=== PATIENT | female | born 1970 | race Caucasian/White ===

== ENCOUNTER 2023-10-07 17:12 | Emergency (ER) | payer SELFPAY ==
--- NOTE | ~2023-10-07 | XR_ITS ---
EXAMINATION: XR chest 2V Exam Date/Time: 10/07/2023 17:26 CDT HISTORY: chest pain Comparison: None. RESULT: Lines, tubes, and devices: None. Lungs and pleura: Clear. Cardiomediastinal silhouette: Unremarkable. Other: No acute osseous or upper abdominal finding. IMPRESSION: No acute cardiopulmonary process. Reviewed, dictated and finalized at location K.
--- NOTE | 2023-10-07 17:13 | ECG_ITS ---
Test Date: 2023-10-07 17:19:50 Measurements Intervals [place] Rate: 107 P: 162 GA: 159 QRS: 186 QRSD: 100 T: 184 QT: 319 QTc: 426 Interpretive Statements SINUS TACHYCARDIA ARM LEADS REVERSED BASELINE ARTIFACT- I, II, III, AVR, AVL, AVF, V1, V5-V6 ABNORMAL ECG No previous ECG available for comparison Electronically Signed On 10-08-2023 06:15:16 CDT by Feng Florian D.O.
[2023-10-07 17:18] VITALS: BP 183/92; PULSE 105; RESP 18; TEMP 36.8; O2SAT 98
--- NOTE | 2023-10-07 17:27 | ED.CHESTPAIN ---
HPI - Chest Pain General Chief Complaint: Chest Pain Stated Complaint: cp, toothache Time Seen by Provider: 10/07/23 17:25 Source: patient Mode of arrival: ambulatory Limitations: no limitations History of Present Illness HPI narrative: This is a 52 year old female that presents to the ER for toothache. Reports poor dentition. She does not have insurance and is unable to see a dentist. Reports worsening pain in a right upper tooth. When she gets bad pain in her tooth she develops sharp left sided chest pain. Reports family history of heart problems which prompted her to be seen. Denies any current pain. Denies fever, cough or shortness of breath. Related Data Allergies Allergy/AdvReac Type Severity Reaction Status Date / Time codeine Allergy Unknown Verified 06/04/22 15:30 Review of Systems Review of Systems: CONSTITUTIONAL: Denies fever ENT: Reports dentition CARDIOVASCULAR: Reports chest pain. Denies palpitations, or edema. RESPIRATORY: Denies cough or dyspnea. All systems reviewed & are unremarkable except as noted in HPI and below PMFSH Past Medical History Medical History (Updated 10/07/23 @ 18:47 by Alma Gomez PA-C) No active medical problems Social History Social History (Updated 10/07/23 @ 17:48 by Alma Gomez PA-C) Smoking status: Current every day smoker Exam Narrative: GENERAL: Well-appearing, well-nourished, and in no acute distress. HEAD: Normocephalic, atraumatic. EYES: EOMI. ENT: Nares clear, no rhinorrhea or epistaxis. Mucous membranes moist. Oropharynx without tonsillar hypertrophy exudate or other lesions. Poor dentition. Tooth #6 is fractured and decaying. No surrounding erythema or fluctuance to suggest abscess NECK: Supple. No adenopathy or masses. No JVD CHEST: Clear to auscultation. No respiratory distress. No wheezes rales or rhonchi HEART: Regular rate and rhythm. No murmur heard. Normal peripheral pulses. EXTREMITIES: Normal range of motion. No edema. SKIN: Warm, dry, no rash. NEURO: No focal deficits. Alert and oriented x3. PSYCH: Normal mood and affect Course Course Emergency Course: Patient updated on workup and agrees with plan of care Vital Signs Vital signs: Vital Signs Temperature 98.2 F 10/07/23 17:18 Pulse Rate 105 H 10/07/23 17:18 Respiratory Rate 18 10/07/23 17:18 Blood Pressure 183/92 H 10/07/23 17:18 Pulse Oximetry 98 10/07/23 17:18 Oxygen Delivery Room Air 10/07/23 17:18 Temperature 98.2 F 10/07/23 17:18 Pulse Rate 90 10/07/23 18:58 Respiratory Rate 18 10/07/23 18:58 Blood Pressure 158/90 H 10/07/23 18:58 Pulse Oximetry 96 10/07/23 18:58 Oxygen Delivery Room Air 10/07/23 17:18 MDM - Chest Pain MDM Narrative Medical decision making narrative: Patient presents to the emergency department for chest pain. Reports she has been having sharp, left-sided chest pain associated with her tooth aches. She is afebrile and nontoxic appearing. No evidence for abscess on exam. Will be started on oral antibiotics and was instructed she should follow up with a dentist. Her blood pressure was elevated upon arrival, this down trended without intervention. Most recent blood pressure 158/90. She was also instructed she needs to have some follow-up with a primary provider for this. CBC and metabolic panel without concerning findings. EKG without acute ST changes in her baseline troponin is negative. Chest x-ray without acute cardiopulmonary abnormality. Her heart score is 3. Patient was updated on her workup and agrees with plan of care. She was given warnings to return to the ER Differential Diagnosis Differential diagnosis: Likely stable angina, atypical chest pain, costochondritis and other ( anxiety, toothache, dental abscess) Lab Data Attestation: I reviewed the patient's lab results. 10/07/23 18:07 10/07/23 18:07 Labs: Lab Results 10/07/23 Range/Units 18:07 WBC 5
[2023-10-07 17:41] VITALS: PULSE 100
[2023-10-07] MEDS: ASPIRIN 81 MG CHEWABLE TABLET 324 MG PO (17:56)
[2023-10-07 18:01] VITALS: BP 186/116; PULSE 91; RESP 18; O2SAT 98
[2023-10-07 18:18] LABS: Basophils Percent Auto 0.5 % (0.2-1.2); Eosinophils Absolute Auto 0.1 K/mm3 (0-0.3); Hematocrit 42.9 % (37.0-47.0); Hemoglobin 14.6 g/dL (12.0-15.0); Immature Granulocyte Absolute 0.02 K/mm3 (0.00-0.031); Immature Granulocyte Percent A 0.3 % (0-0.5); Lymphocytes Percent Auto 35.7 % (18.3-44.2); Mean Corpuscular Hemoglobin 28.3 pg (26-34); Mean Corpuscular Volume 83.3 fl (80-100); Mean Platelet Volume 10.5 fl (7.4-10.4); Monocytes Absolute Auto 0.3 K/mm3 (0.1-0.6); Monocytes Percent Auto 4.4 % (2.6-8.5); Neutrophils Absolute Auto 3.4 K/mm3 (1.3-6.7); Neutrophils Percent Auto 58.1 % (45.5-73.1); Platelet Count Result 174 k/mm3 (150-375); Red Blood Count 5.15 M/mm3 (4.2-5.4); Red Cell Distribution Width 12.5 % (11.5-14.5); White Blood Count 5.9 K/mm3 (4.5-10.0)
[2023-10-07 18:27] LABS: Alanine Aminotransferase 21 U/L (6-35); Albumin Level 4.6 g/dL (3.5-5.1); Alkaline Phosphatase 90 U/L (38-126); Anion Gap 8 mmol/L (4-12); Aspartate Amino Transferase 23 U/L (14-36); Bilirubin,Total 0.7 mg/dL (0.2-1.3); Blood Urea Nitrogen 15 mg/dL (7-17); Calcium 9.3 mg/dL (8.4-10.2); Carbon Dioxide 25 mmol/L (22-30); Chloride 104 mmol/L (98-107); Estimated CRCL calculation 98 ml/min; Estimated Glomerular Filt Rate > 60; Glucose 83 mg/dL (65-110); Lipase 38 U/L (23-300); Potassium 3.8 mmol/L (3.4-5.0); Sodium 137 mmol/L (137-145)
[2023-10-07 18:38] LABS: Partial Thromboplastin Time 30.9 Seconds (22.3-36.8)
[2023-10-07 18:39] LABS: Troponin I < 0.012 ng/mL (0.000-0.034)
[2023-10-07 18:58] VITALS: BP 158/90; PULSE 90; RESP 18; O2SAT 96
== END 2023-10-07 18:58 | disposition home or self-care (01) ==
PROVIDERS: Emergency Medicine; Emergency Provider Physician Assistant
DX: K08.89 Other specified disorders of teeth and supporting structures (principal); R07.9 Chest pain, unspecified; R03.0 Elevated blood-pressure reading, without diagnosis of hypertension; F17.200 Nicotine dependence, unspecified, uncomplicated; R00.0 Tachycardia, unspecified
CPT/HCPCS: 36415; 71046; 80053; 83690; 84484; 85025; 85610; 85730; 93005; 99284; A9270

== ENCOUNTER 2024-12-24 05:10 | Emergency (ER) | payer SELFPAY ==
--- NOTE | ~2024-12-24 | XR_ITS ---
EXAMINATION: XR foot RT min 3V DATE: 12/24/2024 05:50 INDICATION: Atraumatic heel pain TECHNIQUE: Dorsoplantar, two oblique and lateral views of the right foot were obtained. COMPARISON: None. FINDINGS: Alignment is normal. No fracture. Joint spaces are normal. Small plantar calcaneal spur. No cortical erosions or periosteal reaction. Soft tissues are unremarkable. IMPRESSION: 1. Small plantar calcaneal spur. Otherwise unremarkable right foot radiographs. Reviewed, dictated and finalized at location A.
[2024-12-24 05:18] VITALS: PULSE 91; RESP 18; TEMP 36.6; O2SAT 97
--- NOTE | 2024-12-24 05:57 | ED_ITS ---
HPI - Extremity Problem General Chief complaint: Extremity Problem,Nontraumatic Stated complaint: R foot pain Time Seen by Provider: 12/24/24 05:20 History of Present Illness HPI Narrative: Patient presenting with atraumatic right foot pain, started this morning, worse with bearing weight on the heel, has had this happen in the past but it got better Related Data Allergies Allergy/AdvReac Type Severity Reaction Status Date / Time codeine Allergy Unknown Verified 06/04/22 15:30 [facility], [facility] Past Medical History Medical History (Updated 12/24/24 @ 06:01 by Keyla Nogueira MD) No active medical problems Social History Social History (Updated 10/07/23 @ 17:48 by Alma Gomez PA-C) Smoking status: Current every day smoker Exam Narrative: EXAMINATION OF ORGAN SYSTEMS/BODY AREAS: Constitutional: Vital signs per nursing GENERAL:[No acute distress, non-toxic appearing.] HEAD: Normal with no signs of head trauma. EYES: EOMI, conjunctiva normal ENT: Hearing grossly intact LUNGS: Nonlabored breathing. HEART: [Regular rate and rhythm] ABD: [Soft], [nontender to palpation] EXT: Normal range of motion; some tenderness to palpation to the heel without obvious deformity SKIN: [No rashes or lesions.] NEURO: [Alert and oriented x 3. No gross focal sensory or strength deficits.] PSYCH: Normal affect Course Vital Signs Vital signs: Vital Signs Temperature 97.9 F 12/24/24 05:18 Pulse Rate 91 12/24/24 05:18 Respiratory Rate 18 12/24/24 05:18 Pulse Oximetry 97 12/24/24 05:18 Oxygen Delivery Room Air 12/24/24 05:18 Temperature 97.9 F 12/24/24 05:18 Pulse Rate 91 12/24/24 05:18 Respiratory Rate 18 12/24/24 05:18 Pulse Oximetry 97 12/24/24 05:18 Oxygen Delivery Room Air 12/24/24 05:18 MDM - Extremity (Nontraumatic) MDM Narrative Medical decision making narrative: Patient presenting with atraumatic right heel pain. 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 You can always return to the emergency room for symptoms return or worsen Patient Language: [place]ian Prescriptions: New prednisone 20 mg tablet 40 mg PO DAILY 4 Days Qty: 8 0RF No Action amoxicillin-pot clavulanate 875-125 mg tablet 1 tablet PO Q12H 10 Days Qty: 20 0RF Follow-up/Referrals: Filipe Guillen Jr., DPM [Physician, Podiatry] - 2 Days PHYSICIAN,LEACH CELL OPERATOR [Primary Care Provider, Internal Medicine]
[2024-12-24] MEDS: KETOROLAC 30 MG/ML VIAL (*BKC) 15 MG IM (06:19)
== END 2024-12-24 06:27 | disposition home or self-care (01) ==
LOC: ANHED 06:06
PROVIDERS: Emergency Provider Emergency Medicine
DX: M77.31 Calcaneal spur, right foot (principal); F17.200 Nicotine dependence, unspecified, uncomplicated
CPT/HCPCS: 73630; 96372; 99283; J1885; J7512